=== PATIENT | male | born 1990 | race Caucasian/White ===

== ENCOUNTER 2016-12-09 13:19 | Emergency (ER) | payer SELFPAY ==
--- NOTE | 2016-12-09 13:45 | ERNOTE ---
Headache ER HPI - Narrative Date of Service: 12/09/16 - General Presenting Symptoms: headache Time Seen by Provider: 12/09/16 13:27 Source: patient Exam Limitations: no limitations - Immun/Allergies/Home Medications Immunizations: IMMUNIZATION HX Immunizations Up to Date Yes History of Influenza Vaccine No Hx Pneumococcal Vaccination No Allergies/Adverse Reactions: Allergies No Known Allergies Allergy (Verified 12/09/16 13:51) Home Medications: HOME MEDICATIONS NK [No Home Medication] 10/31/15 [Last Taken Unknown] - History of Present Illness Narrative: Patient presents to the ED for headaches. He relates frontal headaches that radiate to the back of his head. He has been having them for 2 weeks. He attributes the HAs to starting a new job and working out in the sun and heat. He relates they last a few minutes, up to 20 minutes then resolve. He gets at least 4 of them per day. No vomiting. No fever. no trauma. No N/T/W. The frequency and intensity have not increased. No rash. No vision changes. Does not have a doctor, has not seen anyone else for this. No ST. No acute, thunderclap HAs. He has been having these daily for 2 weeks, ever since he started working outside. Still drinking plenty of fluids. Timing of Headache: intermittent Context Headache: Absent: CO exposure, sick contact, meningitis exposure, recent head injury < 24 hrs ago, recent head injury > 24 hrs Quality: Present: sharp Severity-Currently: Present: other - right now he tells me the YEUNG is not present Headache frequency: Present: frequent headaches, similar to previous headache Modifying Factors - (Improves): Reports: other - nothing Modifying Factors - (Worsens): Reports: other - working in the sun and heat Associated Symptoms: Denies: fever/chills, vomiting, vision changes, loss of consciousness, seizures, neck pain/stiffness Prior Treament: Denies: recently seen Review of Systems - Review of Systems Constitutional: Absent: fever EYE: Absent: vision changes ENT: Absent: sore throat Respiratory: Absent: shortness of breath Cardiology: Absent: chest pain Gastrointestinal/Abdominal: Absent: vomiting Skin: Absent: rash Neurological: Absent: weakness - Patient's Past Medical History Patient History - Medical: No pertinent hx Patient History - Cardiac/Respiratory: No pertinent hx Patient History - Cancer: No Hx of Cancer Patient History - Surgical Procedures: Other Patient History - Other: None - Social History Living Situations: alone Abuse History: No History of abuse Psych History: No pertinent hx Smoking Status: Current every day smoker Have you smoked in the past 12 months: Yes Alcohol Use: occasionally Drug Use: none - Immunizations Immunizations Up to Date: Yes Hx Pneumococcal Vaccination: No History of Influenza Vaccine: No Physical Exam - Physical Exam General Appearance: Present: alert, no apparent distress Head Exam: Present: normal inspection, no evidence of injury Eye Exam: Normal inspection: bilateral, PERRL: bilateral, EOMI: bilateral Ears, Nose, Throat: Present: normal ENT inspection, normal pharynx. Absent: nasal congestion, pharyngeal erythema, pharyngeal swelling, tonsillar swelling, dry mucous membranes Neck: Present: normal inspection, nontender, supple, full range of motion Respiratory: Present: no respiratory distress, normal breath sounds, no accessory muscle use, lungs clear Cardiovascular/Chest: Present: regular rate, rhythm Gastrointestinal/Abdominal: Present: normal bowel sounds, nontender, nondistended, soft. 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 Absent: facial droop, motor weakness Skin Exam: Present: normal color, warm/dry ED Progress - Vital Signs Vital Signs: Vital Signs 12/09/16 13:22 Temperature 36.8 C Pulse Rate 71 Respiratory 16 Rate Blood Pressure 149/61 O2 Sat by Pulse 99 Oximetry - CT/Ultrasound CT/Ultrasound Narrative: I reviewed radiology report. - Progress/Reassessment Chief Complaint: Headache Progress Note-Subjective: 12/09/16 14:31 Nothing here to suggest SAH, meningitis or other acute life threat. Nothing about this would seem to warrant LP at this time. He is agreeable with this. He wishes to go home. I stressed that he needs to see his doctor tomorrow to discuss further treatment and testing. i discussed warning signs and reasons to return as well as the need for close f/u. Departure Clinical Impression: Frequent headaches - Departure Disposition: Home self-care Condition: Stable Instructions: General Headache Without Cause Additional Instructions: Follow-up with a doctor tomorrow for a re-check and to discuss further testing. Return for fever, increased headache, numbness, tingling, weakness or if your condition worsens or changes in any way.
[2016-12-09 14:20] VITALS: BP 108/65
== END 2016-12-09 14:33 | disposition home or self-care (01) ==
LOC: ER 13:19
DX: R51 Headache (principal); F17.200 Nicotine dependence, unspecified, uncomplicated